=== PATIENT | female | born 1955 | race Caucasian/White ===

== ENCOUNTER 2016-08-30 14:25 | Inpatient (IN) | payer OTHER ==
[~2016-08-30] VITALS: Ht 160 cm; Wt 72.6 kg
--- NOTE | 2016-08-30 14:31 | NUR ---
PT TO ED C/O CELLULITIS TO RIGHT SIDE ABD. PT STATES IT IS "SPREADING TO LYMPH NODES" AND POINTS TO RIGHT GROIN. SENT IN BY DR SIDHU FOR ADMISSION. PT WENT TO WALK IN AND WAS GIVEN PO ABX. STATES IT DOES LOOK BETTER, PT STATES SHE FEELS WORSE, WEAK, DIZZY, LETHARGIC.
--- NOTE | 2016-08-30 14:57 | NUR ---
RECIEVED TO ROOM 2
--- NOTE | 2016-08-30 15:00 | ED GENERAL ADULT ---
History of Present Illness General Chief Complaint: General Adult Stated Complaint: PT WAS SIB DR SIDHU FOR CELLULITIS Source: patient, family Exam Limitations: no limitations Vital Signs & Intake/Output Vital Signs & Intake/Output Vital Signs Date Time Temp Pulse Resp B/P B/P Pulse O2 O2 Flow FiO2 Mean Ox Delivery Rate 08/30 1735 97.7 99 18 126/64 97 08/30 1558 97.5 88 18 128/58 97 08/30 1511 98 Room Air 08/30 1430 96.6 91 20 137/85 97 Room Air Allergies Coded Allergies: Penicillins (NAUSEA 08/30/16) Reconcile Medications Albuterol Sulfate (Proair Hfa) 90 MCG HFA.AER.AD 2 PUF INH Q6-PRN PRN ASTHMA (Reported) Aspirin (Ecotrin*) 81 MG TABLET.DR 1 TAB PO DAILY HEART/BLOOD (Reported) Butalb/Acetaminophen/Caffeine (Fioricet 50-300-40 MG Capsule) 50 MG-300 MG-40 MG CAPSULE 1 TAB PO Q6P PRN Headache Cholecalciferol (Vitamin D3) (Vitamin D) 5,000 UNIT TABLET 1 TAB PO DAILY SUPPLEMENT (Reported) Doxycycline Hyclate 100 MG CAPSULE 1 CAP PO BID lyme disease Please take until 09/09/16 Enalapril Maleate 10 MG TABLET 1 TAB PO QPM BP (Reported) Insulin Glargine,Hum.rec.anlog (Lantus Solostar) 100 UNIT/ML (3 ML) INSULN.PEN 40 UNIT SC BID DM (Reported) Insulin Lispro (Humalog Kwikpen U-100) 100 UNIT/ML INSULN.PEN DM (Reported) Levothyroxine Sodium 75 MCG TABLET 1 TAB PO DAILY AC THYROID (Reported) Metformin HCl (Metformin HCl ER) 500 MG TAB.ER.24H 2 TAB PO BID DM (Reported) Rosuvastatin Calcium (Crestor) 5 MG TABLET 1 TAB PO QPM CHOLESTEROL (Reported ) Vitamin E Acetate (Vitamin E) 400 UNIT CAPSULE 1 CAP PO DAILY SUPPLEMENT ( Reported) Triage Note: PT TO ED C/O CELLULITIS TO RIGHT SIDE ABD. PT STATES IT IS "SPREADING TO LYMPH NODES" AND POINTS TO RIGHT GROIN. SENT IN BY DR SIDHU FOR ADMISSION. PT WENT TO WALK IN AND WAS GIVEN PO ABX. STATES IT DOES LOOK BETTER, PT STATES SHE FEELS WORSE, WEAK, DIZZY, LETHARGIC. Triage Nurses Notes Reviewed? yes Onset: Abrupt Duration: day(s): (3) Timing: recent history Injury Environment: home Severity: moderate, severe No Modifying Factors: none Associated Symptoms: RASH, FLANK PAIN HPI: This is a 61-year-old female insulin dependent diabetic presents to the ER from Jayson Sidhu MD's office for chief complaint of right flank cellulitis. She states on she had a bug bite to her right flank. No tick that was seen. Since that time redness has gotten progressively worse. She went to an urgent care yesterday and they put her on clindamycin. Today she went to Jayson Sidhu MD's office she was not feeling any better. He sent her to the hospital for IV antibiotics and admission. She states that since taking one dose of clindamycin the area of redness actually little bit better. This morning she noted palpable lymph nodes to her right groin which are painful. Denies any fever or chills. She does admit to being very weak. Her blood sugars have been hard to control despite Lantus injections. Past History Travel History Traveled to [place] past 21 day No Medical History Any Pertinent Medical History? see below for history Cardiovascular: hyperlipidemia Hepatic: fatty liver Endocrine: diabetes, hypothyroidism Surgical History Surgical History: non-contributory Psychosocial History Who do you live with Spouse What is your primary language Brazilian Tobacco Use: Quit >30 days ago ETOH Use: denies use Illicit Drug Use: denies illicit drug use Family History Hx Contributory? No Review of Systems Review of Systems Constitutional: Reports: malaise, weakness. Denies: chills, fever. EENTM: Reports: no symptoms. Respiratory: Denies: cough, short of breath. Cardiovascular: Denies: chest pain, palpitations. GI: Reports: no symptoms. Genitourinary: Reports: no symptoms. Musculoskeletal: Denies: back pain. Skin: Reports: erythema, rash. Neurological/Psychological: Reports: no symptoms. Hematologic/Endocrine: Denies: bruising, bleeding, polyuria, polydipsia. Immunologic/Allergic: Denies: splenectomy. All Other Systems: Reviewed and Negative Physical Exam Physical Exam General Appearance: well developed/nourished, alert, awake, mild distress Head: atraumatic, normal appearance Eyes: Bilateral: normal appearance, PERRL, EOMI. Ears, Nose, Throat: normal pharynx, hearing grossly normal Neck: normal inspection, supple, full range of motion Respiratory: normal breath sounds, chest non-tender, no respiratory distress Cardiovascular: regular rate/rhythm Peripheral Pulses: 2+ radial (R), 2+ radial (L) Gastrointestinal: soft, non-tender Back: RIGHT FLANK BULLS EYE Extremities: normal inspection, normal capillary refill, normal range of motion, TENDER LYMPH NODES TO RIGHT GROIN Core Measures ACS in differential dx? No CVA/TIA Diagnosis: No Severe Sepsis Present: No Septic Shock Present: No Progress Differential Diagnoses I considered the following diagnoses in my evaluation of the patient: [ CELLULITIS, ABSCESS, LYME DISEASE] Plan of Care: Orders Procedure Date/time Status Consistent Carbohydrate 1 08/31 B Active Code Status 08/30 1842 Active LACTIC ACID 08/30 1759 Active Pathway - chart 08/30 1731 Active Patient Data 08/30 1627 Active Admit to inpatient 08/30 1611 Active Vital Signs 08/30 1611 Active Code Status 08/30 1611 Complete US-SUPERFICIAL IMAGING EXTREMI 08/30 1551 Active FingerStick- Glucose 08/30 1513 Active Intake & Output 08/30 1511 Active MIXED VENOUS BLOOD GAS (GEN) 08/30 1459 Active BLOOD CULTURE 08/30 1459 Active URINALYSIS 08/30 1459 Complete LYME TITRE 08/30 1459 Active LACTIC ACID 08/30 1459 Complete COMPREHENSIVE METABOLIC PANEL 08/30 1459 Complete CBC WITHOUT DIFFERENTIAL 08/30 1459 Complete ACETONE 08/30 1459 Complete EKG 08/30 1459 Active House Staff 08/30 UNK Active VTE Mechanical Prophylaxis 08/30 UNK Active Vital Signs 08/30 UNK Active Intake & Output 08/30 UNK Active Current Medications Sig/Martina Start time Last Medication Dose Stop Time Status Admin Enoxaparin Sodium 40 MG DAILY 08/31 1000 AC (Lovenox) Acetaminophen 1,000 MG Q6P PRN 08/30 1800 AC (Ofirmev) Acetaminophen 650 MG Q6P PRN 08/30 1730 AC (Tylenol) Laboratory Tests 08/30/16 1528: Bicarbonate Actual 27 H, Mixed VBG pH 7.40, Mixed VBG pCO2 45, Mixed VBG O2 Saturation 42, P-50 (Temp Corrected) N, Carboxyhemoglobin 1.0 L, Phlebotomy Draw Site VENOUS 08/30/16 1520: Urine Color YEL, Urine Clarity CLEAR, Urine pH 6.0, Ur Specific [place] 1.010, Urine Protein NEG, Urine Ketones NEG, Urine Nitrite NEG, Urine Bilirubin NEG, Urine Urobilinogen 0.2, Ur Leukocyte Esterase SMALL H, Ur Microscopic SEDIMENT EXAMINED, Urine RBC 3-5, Urine WBC 10-15 H, Ur Epithelial Cells MOD H, Urine Bacteria MOD H, Urine Hemoglobin TRACE-LYSED, Urine Glucose NEG 08/30/16 1500: Anion Gap 14, Estimated GFR > 60, BUN/Creatinine Ratio 18.0, Glucose 140 H, Lactic Acid 2.1, Calcium 10.0, Total Bilirubin 0.9, AST 30, ALT 55 H, Alkaline Phosphatase 71, Total Protein 7.3, Albumin 4.4, Globulin 2.9, Albumin/Globulin Ratio 1.5, CBC w Diff NO MAN DIFF REQ, RBC 4.78, MCV 87.8, MCH 29.9, RDW 13.2, MPV 8.1, Gran % 65.0, Lymphocytes % 19.5 L, Monocytes % 12.3 H, Eosinophils % 2.7, Basophils % 0.5, Absolute Granulocytes 5.7, Absolute Lymphocytes 1.7, Absolute Monocytes 1.1 H, Absolute Eosinophils 0.2, Absolute Basophils 0, PUBS MCHC 34.1, Lyme Disease Antibody Pending, Acetone Level NEGATIVE Microbiology 08/30 152 BLOOD: Blood Culture - RECD 08/30 1499 BLOOD: Blood Culture - RECD Diagnostic Imaging: Viewed by Me: Radiology Read, Ultrasound. Discussed w/RAD: Radiology Read, Ultrasound. Radiology Impression: PATIENT: LEAH CONTI PRESENT AGE: 61 PATIENT ACCOUNT NO: [id number] : 59 LOCATION: [facility] ORDERING PHYSICIAN: FARSHAD MIRANDA MD SERVICE DATE: 08/30/16 EXAM TYPE: RAD - XRY -ABDOMEN-MULTIPLE VIEWS EXAMINATION: XR ABDOMEN MULTIPLE VIEWS CLINICAL INDICATION: Right flank cellulitis/collection. Evaluate for subcutaneous air. COMPARISON: Ultrasound imaging of superficial tissues from 08/30/2016. TECHNIQUE : Abdomen radiographs, 2 views (patient supine and upright positions) FINDINGS: Lung bases are normal. Cholecystectomy clips are present within the upper abdomen. Bowel gas pattern is normal. No evidence of soft tissue emphysema in the right abdominal wall/flank. No suspicious osseous lesions. IMPRESSION: No acute radiographic findings within the abdomen. No evidence of soft tissue emphysema in the abdominal wall or right flank. DICTATED BY: FREDDY CORONA MD DATE/TIME DICTATED:08/30/161740 DRILLING FIELD PROFESSIONAL:ALICJA DATE/TIME TRANSCRIBED:08/30/161740 CONFIDENTIAL, DO NOT COPY WITHOUT APPROPRIATE AUTHORIZATION. <Electronically signed in Other Vendor System> SIGNED BY: FREDDY CORONA MD 08/30/161746, ultrasound report shows no drainable abscess Initial ED EKG: NSR Departure Departure Time of Disposition: 155 Disposition: STILL A PATIENT Condition: Stable Clinical Impression Primary Impression: Cellulitis of trunk Secondary Impressions: Tick bite of abdominal wall Referrals: KATHLEEN SIDHU MD (PCP/Family) Departure Forms: Customer Survey General Discharge Information Prescriptions: Current Visit Scripts Butalb/Acetaminophen/Caffeine (Fioricet 50-300-40 MG Capsule) 1 TAB PO Q6P PRN Headache #30 Doxycycline Hyclate 1 CAP PO BID #20 CAP Please take until 09/09/16 Admission Note Spoke With: ROSI DUGAN MD Documentation of Exam: Documentation of any treatments & extenuating circumstances including Concerns Regarding Discharge (functional status, medication knowledge or non-compliance, living conditions, etc.) that warrant an admission rather than observation: [IV ABX, IV FLUIDS, PAIN CONTROL, F/U CULTURES, F/U LYME, F/U SUPERFICIAL U/S] Critical Care Note Critical Care Note Critical Care Time: non-applicable
--- NOTE | 2016-08-30 15:07 | NUR ---
PT REPORTS DIZZINESS AND UNSTABLE ACCUCHECKS AT HOME. STARTED CLINDA YESTERDAY AND REPORTS SLIGHT IMPROVEMENT TO RASH AREA. REDDNESS TO R HIP/TORSO AREA WITH DARKENED CENTER. NO DRAINAGE OBSERVED. REPORTS WEAKNESS, ABLE TO STAND FOR ORTHOS AND ORTHOS NEGATIVE. IV ESTABLISHED. BLUE, SST X2, LAV, LOBO, CULTURES X1 SET DRAWN AND SENT TO LAB.
[2016-08-30 15:12] LABS: ABSOLUTE BASOPHIL COUNT 0 /CUMM (0.0-0.2); ABSOLUTE EOSINOPHIL COUNT 0.2 /CUMM (0.0-0.7); ABSOLUTE GRANULOCYTE CT 5.7 /CUMM (1.4-6.5); ABSOLUTE LYMPH COUNT 1.7 /CUMM (1.2-3.4); ABSOLUTE MONOCYTE COUNT 1.1 /CUMM (0.10-0.60); BASOPHIL % 0.5 % (0.0-2.0); EOSINOPHIL % 2.7 % (0-5); MEAN CORPUSCULAR HGB 29.9 PG (27.0-31.0); MEAN CORPUSCULAR HGB CONC 34.1 G/DL (33.0-37.0); MEAN CORPUSCULAR VOLUME 87.8 FL (81.0-99.0); MEAN PLATELET VOLUME 8.1 FL (7.4-10.4); PLATELET COUNT 189 /CUMM (130-400); RBC DISTRIBUTION WIDTH 13.2 % (11.5-14.5); RED BLOOD CELL CT 4.78 /CUMM (4.20-5.40); WHITE BLOOD CELL COUNT 8.8 /CUMM (4.8-10.8)
--- NOTE | 2016-08-30 15:12 | NUR ---
AMBULATED WITH UNSTEADY GAIT TO BATHROOM . URINE TRIO OBTAINED
--- NOTE | 2016-08-30 15:39 | NUR ---
SECOND SET OF BLOOD CULTURES. LYME TITER AND VBG DRAWN. RT PAGED TO RUN VBG. IVF BOLUS STARTED
--- NOTE | 2016-08-30 15:40 | NUR ---
CRITICAL TEST RESULTS [id number] LAEH CONTI 61 F TESTS AND RESULTS: LACTIC ACID 2.1 Results received and read back by: DERICK PENA Results received date and time: 08/30/16 1540 The following provider was notified of the results, and read the results back: FARSHAD MIRANDA Notified date and time: 08/30/16 at 1540
[2016-08-30] MEDS ORDERED: CLINDAMYCIN HC300 M1 PO (15:58)
--- NOTE | 2016-08-30 15:58 | NUR ---
PT TAKEN TO ULTRASOUND
[2016-08-30] MEDS ORDERED: METFORMIN HCL500 M4 PO (15:59)
[2016-08-30] MEDS ORDERED: LEVOTHYROXINE75 MCG PO (15:59)
[2016-08-30] MEDS ORDERED: ENALAPRIL MALEA10 M1 PO (15:59)
[2016-08-30] MEDS ORDERED: CRESTOR5 M1 PO (15:59)
[2016-08-30] MEDS ORDERED: VITAMIN D5000 UNIT PO (16:00)
[2016-08-30] MEDS ORDERED: HUMALOG KW100 UNIT/1 SC (16:00)
[2016-08-30] MEDS ORDERED: LANTUS SOL100 UNIT/1 SC (16:00)
[2016-08-30] MEDS ORDERED: ASPIRIN EC81 M1 PO (16:00)
[2016-08-30] MEDS ORDERED: PROAIR HFA8.5 GM INH (16:01)
[2016-08-30] MEDS ORDERED: VITAMIN E400 UNI4 PO (16:01)
[2016-08-30] MEDS ORDERED: DIFLUCAN150 M1 PO (16:01)
--- NOTE | 2016-08-30 17:22 | History & Physical ---
ABDOULAYE SAWYER 08/30/16 1712: General Information and HPI MD Statement: I have seen and personally examined LEAH CONTI and documented this H&P. The patient is a 61 year old F who presented with a patient stated chief complaint of [cellulitis]. Source of Information: patient Exam Limitations: no limitations History of Present Illness: This is a 61-year-old female with past medical history of insulin-dependent diabetes mellitus hyperlipidemia, hypothyroidism, significant family history of coronary artery disease, hiatal hernia fatty liver came in with chief complaint of right flank redness/rash and erythema that has been worsening. Apparently patient was doing all right when she had a bug bite on her right flank 6 days prior to admission, no tic was seen. She noted that after she had some kind of bug bite, there was progressive redness and continued to get worse. She was seen at the urgent care yesterday and was prescribed clindamycin. She was seen by her primary care Jayson Sidhu MD today as she continued to feel worse and the redness worsened. She was referred to the emergency department by the PCP for worsening redness questioning cellulitis, and further assessment of the same. She also c/o chills with fever of 101 at home, however the ED she has been afebrile. She had intermittently severe headaches , mainly in the frontal area, last for few minutes, was relieved by medicines they gave in the ER, but she again has second episodes of similar headache. When present it is moderate to severe.She denied any local pain prior to the rash, doesn't recollect any tick bite, but she said that her had tick bite from the dog ticks before. Allergies/Medications Allergies: Coded Allergies: Penicillins (NAUSEA 08/30/16) Home Med list Albuterol Sulfate (Proair Hfa) 90 MCG HFA.AER.AD 2 PUF INH Q6-PRN PRN ASTHMA (Reported) Aspirin (Ecotrin*) 81 MG TABLET.DR 1 TAB PO DAILY HEART/BLOOD (Reported) Butalb/Acetaminophen/Caffeine (Fioricet 50-300-40 MG Capsule) 50 MG-300 MG-40 MG CAPSULE 1 TAB PO Q6P PRN Headache Cholecalciferol (Vitamin D3) (Vitamin D) 5,000 UNIT TABLET 1 TAB PO DAILY SUPPLEMENT (Reported) Doxycycline Hyclate 100 MG CAPSULE 1 CAP PO BID lyme disease Please take until 09/09/16 Enalapril Maleate 10 MG TABLET 1 TAB PO QPM BP (Reported) Insulin Glargine,Hum.rec.anlog (Lantus Solostar) 100 UNIT/ML (3 ML) INSULN.PEN 40 UNIT SC BID DM (Reported) Insulin Lispro (Humalog Kwikpen U-100) 100 UNIT/ML INSULN.PEN DM (Reported) Levothyroxine Sodium 75 MCG TABLET 1 TAB PO DAILY AC THYROID (Reported) Metformin HCl (Metformin HCl ER) 500 MG TAB.ER.24H 2 TAB PO BID DM (Reported) Rosuvastatin Calcium (Crestor) 5 MG TABLET 1 TAB PO QPM CHOLESTEROL (Reported ) Vitamin E Acetate (Vitamin E) 400 UNIT CAPSULE 1 CAP PO DAILY SUPPLEMENT ( Reported) Compliance With Home Meds: FAIR Past History Travel History Traveled to [facility] past 21 day No Medical History Cardiovascular: hyperlipidemia Hepatic: fatty liver Endocrine: diabetes, hypothyroidism Surgical History Surgical History: non-contributory Past Family/Social History Psychosocial History Where do you live? Home Who Do You Live With? spouse Smoking Status: Never Smoked ETOH Use: denies use Illicit Drug Use: denies illicit drug use Functional Ability ADLs Independent: dressing, eating, toileting, bathing. Ambulation: independent IADLs Independent: shopping, housework, finances, food prep, telephone, transportation , medication admin. 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 EENTM: Denies: blurred vision, double vision, visual changes, eye pain. Cardiovascular: Denies: chest pain, edema, orthopena, palpitations, peripheral edema, syncope. Respiratory: Denies: cough, hemoptysis, orthopnea, short of breath, sputum production. GI: Denies: abdominal pain, bloating, constipation, diarrhea, distention. Genitourinary: Reports: no symptoms. Musculoskeletal: Reports: joint pain. Skin: Reports: rash. Neurological/Psychological: Reports: no symptoms. Hematologic/Endocrine: Reports: no symptoms. Immunologic/Allergic: Reports: no symptoms. All Other Systems: Reviewed and Negative Comments c/o bandlike frintal headache intermittently Exam & Diagnostic Data Last 24 Hrs of Vital Signs/I&O Vital Signs Date Time Temp Pulse Resp B/P B/P Pulse O2 O2 Flow FiO2 Mean Ox Delivery Rate 08/30 1558 97.5 88 18 128/58 97 08/30 1511 98 Room Air 08/30 1430 96.6 91 20 137/85 97 Room Air Intake & Output 08/30 1600 08/30 0800 08/30 0000 Intake Total Output Total Balance Patient 72.575 kg Weight Weight Reported by Patient Measurement Method Physical Exam General Appearance Alert, Oriented X3, Cooperative, No Acute Distress Skin bulls eye kind of diffusely erthematous rash noted on the right lateral abdomen, tender to touch only i nthe lower part, no central clearing noted, no satellite areas noted. but some very small vesicles present in centre. Skin Temp/Moisture Exam: Warm/Dry Sepsis Skin Exam (color): Normal for Ethnicity HEENT Atraumatic, PERRLA, EOMI Neck Supple, No JVD Lymphatic no lad Cardiovascular Regular Rate, Normal S1, Normal S2, No Murmurs Lungs Clear to Auscultation, Normal Air Movement Abdomen Normal Bowel Sounds, Soft, No Tenderness Neurological Normal Gait, Strength at 5/5 X4 Ext, Normal Tone, Sensation Intact Extremities No Clubbing, No Cyanosis, No Edema, Normal Pulses Vascular Normal Pulses Last 24 Hrs of Labs/Jayme: Laboratory Tests 08/30/16 1528: Bicarbonate Actual 27 H, Mixed VBG pH 7.40, Mixed VBG pCO2 45, Mixed VBG O2 Saturation 42, P-50 (Temp Corrected) N, Carboxyhemoglobin 1.0 L, Phlebotomy Draw Site VENOUS 08/30/16 1520: Urine Color YEL, Urine Clarity CLEAR, Urine pH 6.0, Ur Specific [place] 1.010, Urine Protein NEG, Urine Ketones NEG, Urine Nitrite NEG, Urine Bilirubin NEG, Urine Urobilinogen 0.2, Ur Leukocyte Esterase SMALL H, Ur Microscopic SEDIMENT EXAMINED, Urine RBC 3-5, Urine WBC 10-15 H, Ur Epithelial Cells MOD H, Urine Bacteria MOD H, Urine Hemoglobin TRACE-LYSED, Urine Glucose NEG 08/30/16 1500: Anion Gap 14, Estimated GFR > 60, BUN/Creatinine Ratio 18.0, Glucose 140 H, Lactic Acid 2.1, Calcium 10.0, Total Bilirubin 0.9, AST 30, ALT 55 H, Alkaline Phosphatase 71, Total Protein 7.3, Albumin 4.4, Globulin 2.9, Albumin/Globulin Ratio 1.5, CBC w Diff NO MAN DIFF REQ, RBC 4.78, MCV 87.8, MCH 29.9, RDW 13.2, MPV 8.1, Gran % 65.0, Lymphocytes % 19.5 L, Monocytes % 12.3 H, Eosinophils % 2.7, Basophils % 0.5, Absolute Granulocytes 5.7, Absolute Lymphocytes 1.7, Absolute Monocytes 1.1 H, Absolute Eosinophils 0.2, Absolute Basophils 0, PUBS MCHC 34.1, Lyme Disease Antibody Pending, Acetone Level NEGATIVE Microbiology 08/30 1528 BLOOD: Blood Culture - RECD 08/30 1500 BLOOD: Blood Culture - RECD Diagnostic Data EKG Results Normal sinus rhythm. Other Results Echocardiogram done 01/23/2008 were normal ejection fraction greater than 60%, no wall motion abnormalities. Assessment/Plan Assessment: This is a 61-year-old female with past medical history of insulin-dependent diabetes mellitus, hyperlipidemia, hypothyroidism, significant family history of coronary artery disease, hiatal hernia, Fatty liver came in with chief complain off right flank swelling after having an bug bite 6 days prior to admission, she did not note any tick bite however previously has had tick bites from dog tick, she noted the swelling was worsening, after 1 day of by mouth clindamycin from the urgent care, saw the primary care and was referred to [facility]. vitals on admission temperature of 97.5, pulse of 88, respiration of 18, blood pressure 128/58, she was 97% saturating on room air. White count of 8.8, A/H of 14.3/42.0, platelet of 189 ( baseline 254) of 7.40/bicarbonate of 27/PCO2 of 45, carboxyhemoglobin of 1.0, oxygen saturation 76%. Lytes within normal limits, anion gap 14, glucose of 140, HbA1c 8.6 (last in December 2015), because it of 2.1, calcium of 10.0. Serum alcohol negative. Urinalysis showed small leukocyte esterase, WBC of 10-15 however moderate amount of epithelial cells present. lyme's disease antibody pending. 2 sets of blood cultures were sent from the ER prior to antibiotics. Patient received one time of IV vancomycin and 100 mg of doxycycline at the emergency department. She received 1 bolus of IV normal saline. Problem list along with assessment and plan #1 Right Flank Rash/mild swelling- The rash looks like a bull's eye rash with not much central clearing noted however looks mostly likely consistent with bull 's eye rash 2/2 to lyme's, local reaction from bite v/s shingles but patient has no pain v/s spider bite with local reaction, platelets notes ot be slightly low, patient has mild generalised weakness and intermittent headaches. * ct monitor vitals * monitors i/o * follow blood cx, urine cx, lymes titres * Ct po doxycycline * ID consult in am. #2 H/O DM. * Patient takes 40 units of lantus BID. * Ct FS monitoring * Will start lantus at 35 units BID. * Novolog Low dose SS * hold oral antidiabetics. #H/O HTN- * Ct to monitor BP closely. * Continue Enalapril. #Hypothyroid- * Free t4 slightly low, TSH normal, no symptoms * Will ct levothyroxine at current dosage for now. FC DVT px with lovenox PP CC-3 diet. As Ranked By This Provider Problem List: 1. Cellulitis of trunk 2. Diabetes 3. Hyperlipidemia 4. Hypertension Core Measures/Miscellaneous Acute Coronary Syndrome ACS Diagnosis: No Cerebrovascular Accident CVA/TIA Diagnosis: No Congestive Heart Failure CHF Diagnosis: No Venous Thromboembolism VTE Risk Factors: Age > 40 No [facility] VTE prophylaxis d/t: No contraindications No VTE Pharm Prophylaxis d/t: No contraindications VTE Diagnosis: No VTE Type: NONE VTE Confirmed by (Test): NONE Severe Sepsis Severe Sepsis Present: No Septic Shock Septic Shock Present: No Miscellaneous Documentation Attending Case Discussed With: ROSI DUGAN MD Primary Care Physician: KATHLEEN SIDHU MD Patient sees these Specialists .. Level of Patient Care: General Medicine ROSI DUGAN MD 08/30/16 2207: Attending Review Statement Attending Statement Attending MD Statement: examined this patient, discuss w/resident/PA/ORACLE ERP ARCHITECT, agreed w/resident/PA/ORACLE ERP ARCHITECT, discussed with family, reviewed EMR data (avail), reviewed images, amended to note Attending Assessment/Plan: The patient is a 61 yo female with h/o asthma, HL, hypothyroid, HTN, & DM2 who was sent to the ED today by her PCP where she presented with right flank erythema/infection. She had been seen at an urgent care center the day prior and had been placed on po Clindamycin. She states rash may have improved slightly. She feels this may have started with an insect bite, however did not see any insect or tick. Area has been erythematous and tender with some central vesicles. She has had fatigue and perhaps a low grade fever and headache. No chest pain, dyspnea or other significant symptoms. She was given IV Vanco/Doxy in ED. Physical Exam: VS: T 96.6, P 88, R 18, BP 128/58, PO 97% RA HEENT: eyes- PERRLA, EOMI mishel- moist mucosa Neck: w/o bruits or adenopathy Chest: clear Cor: RRR, nl S1, S2 w/o murm Abd: BS+, soft, NT, - HSM Ext: no edema, pulses 2+, + right inguinal tender adenopathy Neuro: alert & oriented, ?mild distal diminished sensation Derm: + right flank approximately 10 cm area of erythema that is raised and tender w/o purulence, there are several central vesicles, no purulence Labs/Tests- as above Impression/Plan: #Right Flank Erythema/Rash- differential diagnosis includes Lyme (ECM) rash, ? spider bite with local reaction vs bacterial superinfection (?doubt brown recluse), ?zoster with vesicular area (no other lesions along dermatome noted). Plan: Admit to general medicine as per PCP and ED physician. IV antibiotics given in ED (Vanco/Doxy). Would continue Doxycycline. Check Lyme titer. ID evaluation in morning. Musa culture (done). #HTN- BP stable. Plan: Continue Enalapril. #DM2- on insulin and Metformin. Plan: Continue insulin and check glucoscans. #Hypothyroid- clinically euthyroid on Levothyroxine. Plan: Continue Levothyroxine. #HL- on Rosuvastatin. Plan: Continue Rosuvastatin.
--- NOTE | 2016-08-30 17:33 | NUR ---
PT BACK AND FORTH FROM RADIOLOGY. COMPLAINING OF WORSENING DIZZINESS AND HEADACHE.
--- NOTE | 2016-08-30 17:47 | RADIOLOGY REPORT ---
EXAMINATION: XR ABDOMEN MULTIPLE VIEWS CLINICAL INDICATION: Right flank cellulitis/collection. Evaluate for subcutaneous air. COMPARISON: Ultrasound imaging of superficial tissues from 08/30/2016. TECHNIQUE: Abdomen radiographs, 2 views (patient supine and upright positions) FINDINGS: Lung bases are normal. Cholecystectomy clips are present within the upper abdomen. Bowel gas pattern is normal. No evidence of soft tissue emphysema in the right abdominal wall/flank. No suspicious osseous lesions. IMPRESSION: No acute radiographic findings within the abdomen. No evidence of soft tissue emphysema in the abdominal wall or right flank.
--- NOTE | 2016-08-30 18:30 | NUR ---
PT SITTING UP IN CHAIR EATING DINNER. HEADACHE GONE. NO FURTHER DIZZINESS. PT FEELS BETTER
--- NOTE | 2016-08-30 18:54 | NUR ---
PT MOVED TO HOSPITAL BED FOR COMFORT
--- NOTE | 2016-08-30 19:42 | NUR ---
PT AMBULATED TO BATHROOM WITHOUT DIZZINESS OR UNSTEADY GAIT.
--- NOTE | 2016-08-30 20:38 | NUR ---
DR ZHOU PAGED TO REPORT LACTIC ACID AND REQUEST PM HOME MEDICATIONS INCLUDING INSULIN
--- NOTE | 2016-08-30 20:53 | NUR ---
CRITICAL TEST RESULTS [id number] LEAH CONTI 61 F TESTS AND RESULTS: LACTIC ACID 2.1 Results received and read back by: DERICK PENA Results received date and time: 08/30/162052 The following provider was notified of the results, and read the results back: DR SAWYER Notified date and time: 08/30/16 at 2052
--- NOTE | 2016-08-30 22:24 | Admission Certification ---
Admission Certification Certification Statement - As attending physician, I certify that at the time of - admission, based on clinical presentation, severity of - symptoms, need for further diagnostic testing and - therapeutic interventions, and risk of adverse outcomes - without in-hospital treatment, in my clinical assessment, - this patient requires an acute hospital stay for a minimum - of two nights or longer. I have also considered psychsocial - factors such as support system, advanced age, financial - issues, cognitive issues, and failed out-patient treatments, - past re-admission history, safety of patient, and lack of - compliance as applicable. Specific rationale supporting this admission is: Patient sent to ED by PCP with presumed cellulitis/infected insect bite right flank area. Admitted for cultures and IV antibiotics. Started on IV Vanco/ Doxycycline in ED. ID consult in morning.
--- NOTE | 2016-08-30 22:25 | NUR ---
PT MEDICATED WITH EVENING MEDS AND INSULIN. GIVEN TYLENOL FOR HEADACHE. PT LAYING QUIETLY IN BED, WATCHING TV. PT INFORMED OF PLANS TO STAY IN ED UNTIL BED AVAILABLE IN HOSPITAL
--- NOTE | 2016-08-30 23:45 | NUR ---
PT MOVED TO ROOM 18. REPORT GIVEN TO GLADYS Hernandez RN. PT COMPLAINING OF BEING HOT AND DIZZY, SIMILAR SYMPTOMS TO THE ONES SHE HAD WHEN SHE ARRIVED. GLUCOSE 170
--- NOTE | 2016-08-31 01:12 | NUR ---
NO AM LABS ORDERED AT THIS TIME. AWAKE CO SWEATING FS 163, POST LEVEMIR 35 UNITS SUBCUT AT 2213. REQUESTS AND REC'D ALEXANDRU PENDLETON AND ANTOLIN HOOKS.
--- NOTE | 2016-08-31 04:04 | NUR ---
PT AWAKE AND AMBULATING TO BATHROOM WITH STEADY GAIT NOTED, OFFERS NO COMPLAINTS AT THIS TIME
--- NOTE | 2016-08-31 06:12 | NUR ---
PT AWAKE AND ALERT, COMPLAINS OF 5/10 HEADACHE AT THIS TIME. PT MEDICATED WITH PRN TYLENOL FOR PAIN. 0700 MEDS GIVEN .FS 187
[2016-08-31 06:32] VITALS: BP 151/75
--- NOTE | 2016-08-31 06:37 | PN- Housestaff ---
WINNIE PISANO,DARÍO 08/31/16 0637: Subjective Follow-up For: cellulitis, lyme? Subjective: Pt was seen today, reports feeling better than yesterday. Dizziness improved. Continue to have intermittent sweats. Also reported headache and nausea and comes after the sweats. Headache reported as sharp left sided head pain. She is experiencing some numbness on the left side of her face. She has "static like shocks" on her right flank. She had some itchiness on her left leg because she felt that something was biting her, that has resolved. Looking at the right flank lesion, and comparing the lesion to the marked area, we noted that the erythema has slightly subsided on the lateral edge, but seems to be spreading at the medial edge. Lyme came back positive. ID has been consulted. Review of Systems Constitutional: Reports: see HPI. Objective Last 24 Hrs of Vital Signs/I&O Vital Signs Date Time Temp Pulse Resp B/P B/P Pulse O2 O2 Flow FiO2 Mean Ox Delivery Rate 08/31 1338 97.9 87 20 120/78 97 08/31 1257 98.2 84 18 142/70 95 Room Air Room Air 08/31 1011 146/70 08/31 0632 98.4 86 16 151/75 97 Room Air 08/30 1942 97.9 99 18 131/68 94 Room Air 08/30 1735 97.7 99 18 126/64 97 08/30 1558 97.5 88 18 128/58 97 08/30 1511 98 Room Air 08/30 1430 96.6 91 20 137/85 97 Room Air Intake & Output 08/31 1600 08/31 0800 08/31 0000 Intake Total 828 340 5252 Output Total 1 2 Balance 062 998 5489 Intake, IV 1250 Intake, Oral 360 240 Output, Urine 1 2 Patient 72.575 kg Weight Physical Exam General Appearance: Alert, Oriented X3, Cooperative, No Acute Distress Skin: skin findings as described earlier HEENT: Atraumatic, Mucous Membr. moist/pink Cardiovascular: Regular Rate, Normal S1, Normal S2 Lungs: Clear to Auscultation, Normal Air Movement Abdomen: Normal Bowel Sounds, Soft, No Tenderness Neurological: Normal Speech, negative for facial nerve palsy Extremities: No Edema Current Medications: Current Medications Sig/Martina Start time Last Medication Dose Route Stop Time Status Admin Acetaminophen 0 .STK-MED ONE 08/31 1255 DC PO Acetaminophen 0 .STK-MED ONE 08/31 0609 DC PO Acetaminophen 0 .STK-MED ONE 08/30 2214 DC PO Acetaminophen 1,000 MG Q6P PRN 08/30 1800 AC IV Acetaminophen 0 .STK-MED ONE 08/30 1741 DC IV Acetaminophen 650 MG Q6P PRN 08/30 1730 AC 08/31 PO 0611 Acetaminophen/ 1 TAB Q4P PRN 08/31 1145 AC 08/31 Butalbital/Caffeine PO 1255 Aspirin 0 .STK-MED ONE 08/30 2204 DC PO Aspirin Buffered 81 MG DAILY 08/30 2117 AC 08/31 PO 1011 Atorvastatin Calcium 5 MG DAILY 08/30 2300 AC 08/31 PO 1011 Atorvastatin Calcium 5 MG DAILY 08/30 2119 DC 08/30 PO 2223 Doxycycline Hyclate 100 MG BID 08/30 2200 AC 08/31 PO 1011 Doxycycline Hyclate 0 .STK-MED ONE 08/30 1621 DC PO Doxycycline Hyclate 100 MG ONCE ONE 08/30 1530 DC 08/30 PO 08/30 1531 1638 Enoxaparin Sodium 40 MG DAILY 08/31 1000 AC 08/31 SC 1011 Insulin Aspart 0 TIDAC 08/31 0800 AC 08/31 SC 1246 Insulin Detemir 35 UNITS BID 08/30 2130 AC 08/31 SC 1024 Levothyroxine Sodium 0.075 MG DAILY AC 08/31 0700 AC 08/31 PO 0611 Lisinopril 10 MG DAILY 08/31 1000 AC 08/31 PO 1011 Sodium Chloride 1,000 ML BOLUS ONE 08/30 1500 DC 08/30 IV 08/30 1559 1545 Vancomycin HCl 0 .STK-MED ONE 08/30 1622 DC .ROUTE Vancomycin HCl 1,000 MG ONCE ONE 08/30 1515 DC 08/30 Sodium Chloride 250 ML IV 08/30 1614 1638 Last 24 Hrs of Lab/Jayme Results Last 24 Hrs of Labs/Mics: Laboratory Tests 08/30/16 1939: Lactic Acid 2.1 08/30/16 1528: Bicarbonate Actual 27 H, Mixed VBG pH 7.40, Mixed VBG pCO2 45, Mixed VBG O2 Saturation 42, P-50 (Temp Corrected) N, Carboxyhemoglobin 1.0 L, Phlebotomy Draw Site VENOUS 08/30/16 1520: Urine Color YEL, Urine Clarity CLEAR, Urine pH 6.0, Ur Specific [place] 1.010, Urine Protein NEG, Urine Ketones NEG, Urine Nitrite NEG, Urine Bilirubin NEG, Urine Urobilinogen 0.2, Ur Leukocyte Esterase SMALL H, Ur Microscopic SEDIMENT EXAMINED, Urine RBC 3-5, Urine WBC 10-15 H, Ur Epithelial Cells MOD H, Urine Bacteria MOD H, Urine Hemoglobin TRACE-LYSED, Urine Glucose NEG 08/30/16 1500: Lyme Ab (Western Blot) Pending, Lyme IgG 18 kDa Band Pending, Lyme IgG 23 kDa Band Pending, Lyme IgG 28 kDa Band Pending, Lyme IgG 30 kDa Band Pending, Lyme IgG 39 kDa Band Pending, Lyme IgG 41 kDa Band Pending, Lyme IgG 45 kDa Band Pending, Lyme IgG 58 kDa Band Pending, Lyme IgG 66 kDa Band Pending, Lyme IgG 93 kDa Band Pending, Lyme IgM (Western Blot) Pending, Lyme IgM 23 kDa Band Pending, Lyme IgM 39 kDa Band Pending, Lyme IgM 41 kDa Band Pending 08/30/16 1500: Anion Gap 14, Estimated GFR > 60, BUN/Creatinine Ratio 18.0, Glucose 140 H, Lactic Acid 2.1, Calcium 10.0, Total Bilirubin 0.9, AST 30, ALT 55 H, Alkaline Phosphatase 71, Total Protein 7.3, Albumin 4.4, Globulin 2.9, Albumin/Globulin Ratio 1.5, CBC w Diff NO MAN DIFF REQ, RBC 4.78, MCV 87.8, MCH 29.9, RDW 13.2, MPV 8.1, Gran % 65.0, Lymphocytes % 19.5 L, Monocytes % 12.3 H, Eosinophils % 2.7, Basophils % 0.5, Absolute Granulocytes 5.7, Absolute Lymphocytes 1.7, Absolute Monocytes 1.1 H, Absolute Eosinophils 0.2, Absolute Basophils 0, PUBS MCHC 34.1, Lyme Disease Antibody 3.72 *H, Acetone Level NEGATIVE Microbiology 08/31 0321 URINE ROUT: Urine Culture - CAN Cancelled: Cancelled via OE: Per MD Decision 08/30 1528 BLOOD: Blood Culture - RES 08/30 1499 BLOOD: Blood Culture - RES Assessment/Plan Assessment: 61-year-old female with past medical history of insulin-dependent diabetes mellitus, hyperlipidemia, hypothyroidism, significant family history of coronary artery disease, hiatal hernia, Fatty liver came in with chief complain off right flank swelling after having a bug bite 6 days prior to admission, she did not note any tick bite, however her has had 3 episodes of tick bites from dog tick, and [place]. She noted the swelling was worsening, after 1 day of by mouth clindamycin from the urgent care, saw the primary care and was referred to [place]. Associated symptoms include sweating, dizziness, headache, nausea, left face numbness, "static-like shocks" felt in her right flank. Vitals on admission temperature of 97.5, pulse of 88, respiration of 18, blood pressure 128/58, she was 97% saturating on room air. White count of 8.8, H/H of 14.3/42.0, platelet of 189 (baseline 254) VBG of 7.40/bicarbonate of 27/PCO2 of 45, carboxyhemoglobin of 1.0, oxygen saturation 76%. Lytes within normal limits, anion gap 14, glucose of 140, HbA1c 8.6 (last in December 2015), lactic acid 2.1, calcium of 10.0. Serum alcohol negative. Urinalysis showed small leukocyte esterase, WBC of 10-15 however moderate amount of epithelial cells present. Lymes disease antibody POSITIVE 2 sets of blood cultures were sent from the ER prior to antibiotics. Patient received one time of IV vancomycin and 100 mg of doxycycline at the emergency department. She received 1 bolus of IV normal saline. Problem list along with assessment and plan # Right Flank Rash/mild swelling most likely erythema migrans, lyme disease. - Right flank US: Diffuse soft tissue edema and thickening and hyperemia in region of patient's erythema, consistent with clinical diagnosis of cellulitis. No focal abscess formation seen. * follow blood cx, lymes igg pending * Continue po doxycycline, consider iv ceftriaxone * ID consulted * fioricet for headache # H/O DM. - Patient takes 40 units of lantus BID * Ct FS monitoring * Will start lantus at 35 units BID * Novolog Low dose SS * hold oral antidiabetics #H/O HTN/HLD * Ct to monitor BP closely. * Continue Enalapril * Continue aspirin # Hypothyroid * Will ct levothyroxine at current dosage for now CC-3 diet DVT px with lovenox PP FC Problem List: 1. Lyme disease 2. Cellulitis of trunk Pain Ratin Pain Location: none Pain Goal: Remain pain free Pain Plan: mild pp fioricet for headache Tomorrow's Labs & Rationales: none DVT/Prophylaxis: mechanical, pharmacological SUNITA JEFFERS 08/31/16 1133: Attending MD Review Statement Attending Statement Attending MD Statement: examined this patient, discuss w/resident/PA/PECAN PICKER, agreed w/resident/PA/PECAN PICKER, discussed with family, reviewed EMR data (avail), discussed with nursing, discussed with case mgmt, reviewed images, amended to note Attending Assessment/Plan: Impression/Plan: #Right Flank Erythema/Rash- differential diagnosis includes Lyme (ECM) rash, ? spider bite with local reaction vs bacterial superinfection (?doubt brown recluse) Plan: Admit to general medicine as per PCP and ED physician. IV antibiotics given in ED (Vanco/Doxy). Would continue Doxycycline. Check Lyme titer. ID consultation. Musa culture (done). #HTN- BP stable. Plan: Continue Enalapril. #DM2- on insulin and Metformin. Plan: Continue insulin and check glucoscans. #Hypothyroid- clinically euthyroid on Levothyroxine. Plan: Continue Levothyroxine. #HL- on Rosuvastatin. Plan: Continue Rosuvastatin. Plan of care d/wed family/patient bedside in ER.
--- NOTE | 2016-08-31 08:01 | NUR ---
HOUSE STAFF AT BEDSIDE PT MEDICATED WITH 1 UNIT NOVOLOG SC FOR FS OF 187
--- NOTE | 2016-08-31 09:27 | ULTRASOUND REPORT ---
EXAMINATION: US SUPERFICIAL IMAGING, EXTREMITY CLINICAL INFORMATION: Right flank cellulitis/wound. Evaluate for collection. COMPARISON: None TECHNIQUE: Focal soft tissue ultrasound of the right posterior flank area of redness was performed with real-time assessment by the reading radiologist. FINDINGS: There is diffuse subcutaneous edema and skin thickening seen in region of the patient's erythema over the right posterior lateral flank. With color Doppler imaging, slight hyperemia is noted. No focal fluid collection or abscess is seen. IMPRESSION: Diffuse soft tissue edema and thickening and hyperemia in region of patient's erythema, consistent with clinical diagnosis of cellulitis. No focal abscess formation seen.
--- NOTE | 2016-08-31 10:27 | NUR ---
PT. REQUESTING SPECIFIC DIET FOR TODAY: ORDERD FOR PATIENT TURKEY AND BRITISH ON WHEAT BREAD WITH MAYONAISE, LARGE BEEF BARLEY SOUP, SUGAR FREE AISHWARYA PUDDING AND UNSWEETENED ICED TEA. ORDER PLACED BY THIS MST TO [facility] FROM [employer].
--- NOTE | 2016-08-31 10:34 | NUR ---
PT REMAINS ALERT AND ORIENTED, SPOUSE AT BEDSIDE. PT AMBULATED TO BATHROOM WITH STEADY GAIT. DENIES PAIN.
--- NOTE | 2016-08-31 11:11 | NUR ---
PT UP OUT OF BED , AMBULATED TO BATHROOM WITH STEADY GAIT.
--- NOTE | 2016-08-31 12:20 | NUR ---
PT ASSIGNED ROOM 229 BED BED 1.
--- NOTE | 2016-08-31 12:56 | NUR ---
REPORT GIVEN TO SURENDRA ARIAS. [facility] CALLED FOR PT TRANSPORT. PT MEDICATED WITH FIORICET PER EMAR FOR C/O HEADACHE.
[2016-08-31 13:38] VITALS: BP 120/78
--- NOTE | 2016-08-31 15:26 | Cons- Infect Disease ---
General Information and HPI Consulting Request Date of Consult: 08/31/16 Requested By: SUNITA JEFFERS MD Reason for Consult: Cellulitis right flank Source of Information: patient, family History of Present Illness: This is a 61-year-old woman with a history of diabetes and hypothyroidism, who noted what she thought was a bug bite on her right flank 5 days prior to admission, with increasing erythema and some discomfort over the next several days, associated with fatigue, mild headaches, arthralgias, fevers and chills, seen in a walk-in clinic on the day prior to admission and begun on Clindamycin, admitted on August 30 after she was sent to the emergency room by her primary care physician because of increasing erythema over the right flank and discomfort spreading to the right groin. On admission she was afebrile. Laboratory data revealed a white blood cell count of 9000, BUN/creatinine 9 and 0.5, ALT 55. Urinalysis 3-5 RBC/10-15 WBCs. An ultrasound of the right flank revealed diffuse soft tissue edema, thickening and hyperemia. An abdominal x-ray was negative. She was given a dose of Vancomycin and begun on Doxycycline. She has remained afebrile overnight. Today her Lyme titer was found to be positive. Allergies/Medications Allergies: Coded Allergies: Penicillins (NAUSEA 08/30/16) Home Med List: Albuterol Sulfate (Proair Hfa) 90 MCG HFA.AER.AD 2 PUF INH PRN ASTHMA ( Reported) Aspirin (Ecotrin*) 81 MG TABLET.DR 1 TAB PO DAILY HEART/BLOOD (Reported) Cholecalciferol (Vitamin D3) (Vitamin D) 5,000 UNIT TABLET 1 TAB PO DAILY SUPPLEMENT (Reported) Clindamycin HCl 300 MG CAPSULE 1 CAP PO TID ANTIBIOTIC (Reported) Enalapril Maleate 10 MG TABLET 1 TAB PO QPM BP (Reported) Fluconazole (Diflucan) 150 MG TABLET 1 TAB PO PRN UNKNOWN (Reported) Insulin Glargine,Hum.rec.anlog (Lantus Solostar) 100 UNIT/ML (3 ML) INSULN.PEN 40 UNIT SC BID DM (Reported) Insulin Lispro (Humalog Kwikpen U-100) 100 UNIT/ML INSULN.PEN DM (Reported) Levothyroxine Sodium 75 MCG TABLET 1 TAB PO DAILY AC THYROID (Reported) Metformin HCl (Metformin HCl ER) 500 MG TAB.ER.24H 2 TAB PO BID DM (Reported) Rosuvastatin Calcium (Crestor) 5 MG TABLET 1 TAB PO QPM CHOLESTEROL (Reported ) Vitamin E Acetate (Vitamin E) 400 UNIT CAPSULE 1 CAP PO DAILY SUPPLEMENT ( Reported) Past History Travel History Traveled to [place] past 21 day No Medical History Blood Transfusion Hx: No Neurological: NONE EENT: NONE Cardiovascular: hyperlipidemia Respiratory: NONE Gastrointestinal: NONE Hepatic: fatty liver Renal: NONE Musculoskeletal: NONE Psychiatric: NONE Endocrine: diabetes, hypothyroidism Blood Disorders: NONE Cancer(s): NONE 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 Home Who Do You Live With? spouse Smoking Status: Never Smoked ETOH Use: denies use Illicit Drug Use: denies illicit drug use Functional Ability ADLs Independent: dressing, eating, toileting, bathing. Ambulation: independent IADLs Independent: shopping, housework, finances, food prep, telephone, transportation , medication admin. Employment History Employment: Employed Profession/Employer: [employer] Review of Systems Review of Systems Musculoskeletal: Reports: see HPI. Neurological/Psychological: Reports: paresthesia (right flank). All Other Systems: Reviewed and Negative Exam & Diagnostic Data Last 24 Hrs of Vital Signs/I&O Vital Signs Date Time Temp Pulse Resp B/P B/P Pulse O2 O2 Flow FiO2 Mean Ox Delivery Rate 08/31 1338 97.9 87 20 120/78 97 08/31 1257 98.2 84 18 142/70 95 Room Air Room Air 08/31 1011 146/70 08/31 0632 98.4 86 16 151/75 97 Room Air 08/30 1942 97.9 99 18 131/68 94 Room Air 08/30 1735 97.7 99 18 126/64 97 08/30 1558 97.5 88 18 128/58 97 Intake & Output 08/31 1600 08/31 0800 08/31 0000 Intake Total 641 316 2024 Output Total 1 2 Balance 664 467 6519 Intake, IV 1250 Intake, Oral 360 240 Output, Urine 1 2 Patient 160 lb Weight Physical Exam Other Physical Findings: She is awake and alert in no acute distress. She is afebrile. Skin reveals an erythematous rash on her right flank, with central discoloration and with slight clearing around the periphery, minimally tender to palpation. HEENT exam is negative. Neck is supple with no adenopathy. Lungs are clear. Heart regular rhythm with no murmur. Abdomen is soft, nontender with positive bowel sounds. Back no CVA tenderness. Extremities right groin reveals a tender, enlarged lymph node, with no cyanosis, clubbing or edema. Neuro is without focality. Last 24 Hours of Lab Results: Laboratory Tests 08/30 08/30 08/30 1939 1528 1520 Blood Gas Bicarbonate Actual (22 - 26 MEQ/L) 27 H Mixed VBG pH (7.31 - 7.41 PH) 7.40 Mixed VBG pCO2 (41 - 51 TORR) 45 Mixed VBG O2 Saturation (35 - 45 TORR) 42 P-50 (Temp Corrected) N Carboxyhemoglobin (1.5 - 5.0 %) 1.0 L Chemistry Lactic Acid (0.7 - 2.1 mmol/L) 2.1 Miscellaneous Phlebotomy Draw Site VENOUS Urines Urine Color (YEL,AMB,STR) YEL Urine Clarity (CLEAR) CLEAR Urine pH (5.0 - 8.0) 6.0 Ur Specific [place] (1.001 - 1.035) 1.010 Urine Protein (NEG,<30 MG/DL) NEG Urine Ketones (NEG) NEG Urine Nitrite (NEG) NEG Urine Bilirubin (NEG) NEG Urine Urobilinogen (0.1 - 1.0 EU/dl) 0.2 Ur Leukocyte Esterase (NEG) SMALL H Ur Microscopic SEDIMENT EXAMINED Urine RBC (0 - 5 /HPF) 3-5 Urine WBC (0 - 2 /HPF) 10-15 H Ur Epithelial Cells (NONE,FEW) MOD H Urine Bacteria (NEG/NONE) MOD H Urine Hemoglobin (NEG) TRACE-LYSED Urine Glucose (N MG/DL) NEG Last 24 Hours of Jayme Results: Blood cultures 2 August 30 negative Diagnostic Data Recent Imaging Findings: Ultrasound of the right flank August 30 revealed diffuse soft tissue edema, thickening and hyperemia. Abdominal x-ray August 30 negative Assessment/Plan Assessment/Plan Impression: This is a 61-year-old woman with a history of diabetes admitted on August 30 with an area of erythema over the right flank, which has progressively increased in size , mildly tender to palpation, associated with fevers, chills, headaches, arthralgias and fatigue, found to be afebrile with a normal white blood cell count and with a positive Lyme titer. The rash is quite suggestive of erythema chronicum migrans, and her clinical picture is consistent with Lyme disease. The right groin lymphadenitis likely represents a reactive process. Suggestion: 1. Follow-up Lyme Western blot 2. Continue Doxycycline 100 mg po every 12 hours to complete a 10 day course Consult Acknowledgment - Thank you for your consult request.
[2016-08-31] MEDS ORDERED: FIORICET 50-301 EACH PO (15:36)
[2016-08-31] MEDS ORDERED: DOXYCYCLINE HY100 M2 PO (15:37)
--- NOTE | 2016-08-31 15:38 | Patient Discharge Instructions ---
Discharge Instructions General Discharge Information You were seen/treated for: Lyme disease Special Instructions: Please take antibiotics as directed Please follow up with PCP in 1 week Diet Continue normal diet: Yes Recommended Diet: Diabetic Activity Full Activity/No Limits: Yes Acute Coronary Syndrome Inclusion Criteria At DC or during hospital stay patient has or had the following: ACS DIAGNOSIS No Discharge Core Measures Meds if any: Prescribed or Continued at Discharge Meds if any: NOT Prescribed or Continued at Discharge Congestive Heart Failure Inclusion Criteria At DC or during hospital stay patient has or had the following: CHF DIAGNOSIS No Discharge Core Measures Meds if any: Prescribed or Continued at Discharge Meds if any: NOT Prescribed or Continued at Discharge Cerebrovascular accident Inclusion Criteria At DC or during hospital stay patient has or had the following: CVA/TIA Diagnosis No Discharge Core Measures Meds if any: Prescribed or Continued at Discharge Meds if any: NOT Prescribed or Continued at Discharge Venous thromboembolism Inclusion Criteria VTE Diagnosis No VTE Type NONE VTE Confirmed by (Test) NONE Discharge Core Measures - Per Current guidelines, there needs to be overlap - treatment for the first 5 days of Warfarin therapy. - If discharged on Warfarin prior to 5 days of - overlap therapy, the patient will need to be - assessed for post discharge needs including - *Post discharge parental anticoagulation - *Warfarin and/or parental anticoagulation education - *Follow up date to check INR post discharge At least 5 days overlap therapy as Inpatient No Meds if any: Prescribed or Continued at Discharge Note: Overlap Therapy is Warfarin and Anticoagulant Meds if any: NOT Prescribed or Continued at Discharge
[2016-09-01 06:34] VITALS: BP 128/84
--- NOTE | 2016-09-01 06:55 | PN- Housestaff ---
WINNIE PISANO,DARÍO 09/01/16 0655: Subjective Follow-up For: lyme disease Subjective: Pt was seen today, reported intermittent headache and sharp pain to right flank. rash looks improved. Pt to be discharged po doxycycline to complete 10 day course of abx. Review of Systems Constitutional: Reports: see HPI. Objective Last 24 Hrs of Vital Signs/I&O Vital Signs Date Time Temp Pulse Resp B/P B/P Pulse O2 O2 Flow FiO2 Mean Ox Delivery Rate 09/01 0634 98.1 83 20 128/84 96 Room Air 08/31 1338 97.9 87 20 120/78 97 08/31 1257 98.2 84 18 142/70 95 Room Air Room Air Intake & Output 09/01 1600 09/01 0800 09/01 0000 Intake Total 240 400 Output Total Balance 240 400 Intake, Oral 240 400 Physical Exam General Appearance: Alert, Oriented X3, Cooperative, No Acute Distress Skin: rash looks improved Cardiovascular: Regular Rate, Normal S1, Normal S2 Lungs: Clear to Auscultation, Normal Air Movement Abdomen: Normal Bowel Sounds, Soft, No Tenderness Neurological: Normal Speech Assessment/Plan Assessment: 61-year-old female with past medical history of insulin-dependent diabetes mellitus, hyperlipidemia, hypothyroidism, significant family history of coronary artery disease, hiatal hernia, Fatty liver came in with chief complain off right flank swelling after having a bug bite 6 days prior to admission, she did not note any tick bite, however her has had 3 episodes of tick bites from dog tick, and [place]. She noted the swelling was worsening, after 1 day of by mouth clindamycin from the urgent care, saw the primary care and was referred to [facility]. Associated symptoms include sweating, dizziness, headache, nausea, left face numbness, "static-like shocks" felt in her right flank. Vitals on admission temperature of 97.5, pulse of 88, respiration of 18, blood pressure 128/58, she was 97% saturating on room air. White count of 8.8, H/H of 14.3/42.0, platelet of 189 (baseline 254) VBG of 7.40/bicarbonate of 27/PCO2 of 45, carboxyhemoglobin of 1.0, oxygen saturation 76%. Lytes within normal limits, anion gap 14, glucose of 140, HbA1c 8.6 (last in December 2015), lactic acid 2.1, calcium of 10.0. Serum alcohol negative. Urinalysis showed small leukocyte esterase, WBC of 10-15 however moderate amount of epithelial cells present. Lymes disease antibody POSITIVE 2 sets of blood cultures were sent from the ER prior to antibiotics. Patient received one time of IV vancomycin and 100 mg of doxycycline at the emergency department. She received 1 bolus of IV normal saline. Problem list along with assessment and plan # Right Flank Rash/mild swelling most likely erythema migrans, lyme disease. - Right flank US: Diffuse soft tissue edema and thickening and hyperemia in region of patient's erythema, consistent with clinical diagnosis of cellulitis. No focal abscess formation seen. * follow blood cx, positive lyme ab, lymes igg and igm pending * ID consulted, recc 10 day course of doxycycline * fioricet for headache # H/O DM. - Patient takes 40 units of lantus BID * Ct FS monitoring * On lantus at 35 units BID * Novolog Low dose SS * hold oral antidiabetics #H/O HTN/HLD * Ct to monitor BP closely. * Continue Enalapril * Continue aspirin # Hypothyroid * Will ct levothyroxine at current dosage for now CC-3 diet DVT px with lovenox PP FC Problem List: 1. Lyme disease Pain Ratin Pain Location: none Pain Goal: Remain pain free Pain Plan: mild pp Tomorrow's Labs & Rationales: none DVT/Prophylaxis: mechanical, pharmacological SUNITA JEFFERS 09/01/16 1040: Attending MD Review Statement Attending Statement Attending MD Statement: examined this patient, discuss w/resident/PA/SYSTEM ADMINISTRATION MANAGER, agreed w/resident/PA/SYSTEM ADMINISTRATION MANAGER, discussed with family, reviewed EMR data (avail), discussed with nursing, discussed with case mgmt, reviewed images, amended to note Attending Assessment/Plan: #Right Flank Erythema/Rash- differential diagnosis includes Lyme (ECM) rash, ? spider bite with local reaction vs bacterial superinfection (?doubt brown recluse) Plan: Admit to general medicine as per PCP and ED physician. IV antibiotics given in ED (Vanco/Doxy). Would continue Doxycycline for lyme disease. ID recommendations followed. #HTN- BP stable. Plan: Continue Enalapril. #DM2- on insulin and Metformin. Plan: Continue insulin and check glucoscans. #Hypothyroid- clinically euthyroid on Levothyroxine. Plan: Continue Levothyroxine. #HL- on Rosuvastatin. Plan: Continue Rosuvastatin. d/c today. f/u o/p PCP in 1 week.
--- NOTE | 2016-09-01 09:49 | Discharge Summary ---
Visit Information Visit Dates Admission Date: 08/30/16 Discharge Date: 09/01/16 Hospital Course Course Attending Physician: SUNITA JEFFERS MD Primary Care Physician: NAHUM PISANO,[facility] Course: 61-year-old female with past medical history of insulin-dependent diabetes mellitus, hyperlipidemia, hypothyroidism, significant family history of coronary artery disease, hiatal hernia, Fatty liver came in with chief complain of right flank swelling after having a bug bite 6 days prior to admission, she did not note any tick bite, however her has had 3 episodes of tick bites from dog tick, and [place]. She noted the swelling was worsening, after 1 day of by mouth clindamycin from the urgent care, saw the primary care and was referred to [facility]. Associated symptoms include sweating, dizziness, headache, nausea, left face numbness, "static-like shocks" felt in her right flank. Vitals on admission temperature of 97.5, pulse of 88, respiration of 18, blood pressure 128/58, she was 97% saturating on room air. White count of 8.8, H/H of 14.3/42.0, platelet of 189 (baseline 254) VBG of 7.40/bicarbonate of 27/PCO2 of 45, carboxyhemoglobin of 1.0, oxygen saturation 76%. Lytes within normal limits, anion gap 14, glucose of 140, HbA1c 8.6 (last in December 2015), lactic acid 2.1, calcium of 10.0. Serum alcohol negative. Urinalysis showed small leukocyte esterase, WBC of 10-15 however moderate amount of epithelial cells present. Lymes disease antibody POSITIVE 2 sets of blood cultures were sent from the ER prior to antibiotics. Patient received one time of IV vancomycin and 100 mg of doxycycline at the emergency department. She received 1 bolus of IV normal saline. # Right Flank Rash/mild swelling most likely erythema migrans, lyme disease. - Right flank US: Diffuse soft tissue edema and thickening and hyperemia in region of patient's erythema, consistent with clinical diagnosis of cellulitis. No focal abscess formation seen. * BC NGTD, positive lyme ab, lymes igg and igm pending * ID consulted, recc 10 day course of doxycycline * fioricet for headache # H/O DM - Patient takes 40 units of lantus BID * In hospital, was on lantus at 35 units BID, Novolog Low dose SS, hold oral antidiabetics * Resume homemeds at discharge #H/O HTN/HLD * Continue Enalapril and aspirin # Hypothyroid * Continue levothyroxine CC-3 diet DVT px with lovenox PP FC Allergies: Coded Allergies: Penicillins (NAUSEA 08/30/16) Disposition Summary Disposition Principal Diagnosis: Lyme Disease Additional Diagnosis: DM HTN Hypothyroidism Discharge Disposition: home or self care Discharge Instructions General Discharge Information Code Status: Full Code Patient's Diet: Diabetic Patient's Activity: As tolerated Follow-Up Instructions/Appts: You were seen/treated for: Lyme disease Special Instructions: Please take antibiotics as directed Please follow up with PCP in 1 week Medications at Discharge Discharge Medications: Stop taking the following medications: Clindamycin HCl (Clindamycin HCl) 300 MG CAPSULE ORAL THREE TIMES DAILY Qty = 30 Fluconazole (Diflucan) 150 MG TABLET ORAL as needed for UNKNOWN Qty = 2 Continue taking these medications: Metformin HCl (Metformin HCl ER) 500 MG TAB.ER.24H 2 Tablet ORAL TWICE DAILY Qty = 360 Enalapril Maleate (Enalapril Maleate) 10 MG TABLET 1 Tablet ORAL Every night Qty = 90 Rosuvastatin Calcium (Crestor) 5 MG TABLET 1 Tablet ORAL Every night Qty = 90 Levothyroxine Sodium (Levothyroxine Sodium) 75 MCG TABLET 1 Tablet ORAL DAILY BEFORE BREAKFAST Qty = 90 Insulin Glargine,Hum.rec.anlog (Lantus Solostar) 100 UNIT/ML (3 ML) INSULN.PEN 40 Unit Inject into fatty tissue TWICE DAILY Qty = 75 Insulin Lispro (Humalog Kwikpen U-100) 100 UNIT/ML INSULN.PEN Units Inject into fatty tissue BEFORE MEALS AND AT BEDTIME Qty = 30 Aspirin (Ecotrin*) 81 MG TABLET.DR 1 Tablet ORAL DAILY Cholecalciferol (Vitamin D3) (Vitamin D) 5,000 UNIT TABLET 1 Tablet ORAL DAILY Vitamin E Acetate (Vitamin E) 400 UNIT CAPSULE 1 Capsule ORAL DAILY Albuterol Sulfate (Proair Hfa) 90 MCG HFA.AER.AD 2 Puff Inhale through mouth as needed for ASTHMA Start taking the following new medications: Butalb/Acetaminophen/Caffeine (Fioricet 50-300-40 MG Capsule) 50 MG-300 MG-40 MG CAPSULE 1 Tablet ORAL EVERY SIX HOURS NEEDED as needed for Headache Qty = 30 No Refills Doxycycline Hyclate (Doxycycline Hyclate) 100 MG CAPSULE 1 Capsule ORAL TWICE DAILY Qty = 20 No Refills Instructions: Please take until 09/09/16 Copies To: NAHUM PISANO,KATHLEEN Attending MD Review Statement Documenting Attending: SUNITA JEFFERS MD
== END 2016-09-01 11:45 | DRG 869 ==
LOC: ERH 14:25 → ERHI 16:11 → 2NA 16:11 → CANRESERV 23:11 → ENRESERV 23:11 → ERHI 08-31 09:15 → ENRESERV 08-31 12:13 → CMPBEDREQ 08-31 12:13 → 2NA 08-31 13:09 → ENPENDDIS 09-01 10:25 → 2NA 09-01 11:45
PROVIDERS: Emergency Medicine; ADMIT Internal Medicine
DX: A69.20 Lyme disease, unspecified (principal); A26.0 Cutaneous erysipeloid; K76.0 Fatty (change of) liver, not elsewhere classified; E11.9 Type 2 diabetes mellitus without complications; E78.5 Hyperlipidemia, unspecified; E03.9 Hypothyroidism, unspecified; Z82.49 Family history of ischemic heart disease and other diseases of the circulatory system; Z79.4 Long term (current) use of insulin
CPT/HCPCS: 2NASP; 86618; ERO; 74020; 76881; 81001; 87040; 87086; 93005; 93010; 96365; 96375; J0131; J1650; J3370; J3490